=== PATIENT | male | born 1990 | race Caucasian/White ===

== ENCOUNTER 2025-08-31 20:09 | Emergency (ER) | payer MEDICAID ==
[~2025-08-31] VITALS: Ht 188 cm; Wt 90.7 kg
[2025-08-31] MEDS ORDERED: cetrizine 10 MG TABLET ONE (22:20)
[2025-08-31] MEDS ORDERED: FAMOTIDINE (20 MG) 20 MG TABLET ONE (22:20)
[2025-08-31] MEDS ORDERED: CETI-90 PO (22:26)
[2025-08-31] MEDS ORDERED: DIPH25CA83 PO (22:26)
[2025-08-31] MEDS ORDERED: PRED20TA PO (22:26)
[2025-08-31] MEDS ORDERED: EPIN0.3P3 IM (22:27)
[2025-08-31] MEDS ORDERED: FAMO20TA80 PO (22:28)
[2025-08-31] MEDS: FAMOTIDINE (20 MG) 20 MG TABLET PO ONE (22:29)
[2025-08-31] MEDS: cetrizine 10 MG TABLET PO ONE (22:29)
[2025-08-31 23:35] VITALS: BP 125/75; TEMP 98; O2SAT 98
== END 2025-08-31 23:38 | disposition home or self-care (01) ==
LOC: ER 20:13
DX: R22.0 Localized swelling, mass and lump, head (principal); F11.20 Opioid dependence, uncomplicated; N18.9 Chronic kidney disease, unspecified; Z79.52 Long term (current) use of systemic steroids
CPT/HCPCS: 99284; Q0163; J7512